=== PATIENT | female | born 1985 | race Two or more races ===

== ENCOUNTER 2020-03-02 08:00 | Inpatient (IN) | payer OTHER ==
[~2020-03-02] VITALS: Ht 167.6 cm; Wt 74.4 kg
[2020-03-12] MEDS ORDERED: PRENATAL TABLE1 EACH PO (08:20)
== END 2020-03-14 13:07 | disposition home or self-care (01) | DRG 807 ==
LOC: LDR 03-12 06:57 → OB/GYN 03-12 16:41
PROVIDERS: ADMIT Obstetrics & Gynecology Maternal & Fetal Medicine
PROC: 10E0XZZ Delivery of Products of Conception, External Approach (ICD-10-PCS; principal; 2020-03-12)
PROC: 0HQ9XZZ Repair Perineum Skin, External Approach (ICD-10-PCS; 2020-03-12)
PROC: 3E033VJ Introduction of Other Hormone into Peripheral Vein, Percutaneous Approach (ICD-10-PCS; 2020-03-12)
PROC: 4A1HXCZ Monitoring of Products of Conception, Cardiac Rate, External Approach (ICD-10-PCS; 2020-03-12)
DX: O70.0 First degree perineal laceration during delivery (principal); Z37.0 Single live birth; Z3A.39 39 weeks gestation of pregnancy

== ENCOUNTER 2020-03-06 09:16 | Outpatient (CLI) | payer OTHER | END 2020-03-06 09:55 | disposition home or self-care (01) | LOC: NST 09:16 | DX: Z34.83 Encounter for supervision of other normal pregnancy, third trimester (principal) ==

== ENCOUNTER 2020-03-09 09:17 | Outpatient (CLI) | payer OTHER | END 2020-03-09 10:30 | disposition home or self-care (01) | LOC: NST 09:17 | DX: Z34.83 Encounter for supervision of other normal pregnancy, third trimester (principal) ==